=== PATIENT | female | born 1985 | race African-American/Black ===

== ENCOUNTER → 2018-03-16 | Emergency (ER) | payer BC ==
[~2018-03-16] VITALS: Ht 172.7 cm; Wt 73.0 kg
[2018-03-16 21:05] VITALS: BP 141/89
== END ==
LOC: ER 20:58
DX: T74.21XA Adult sexual abuse, confirmed, initial encounter (principal); R10.30 Lower abdominal pain, unspecified; R10.2 Pelvic and perineal pain; R03.0 Elevated blood-pressure reading, without diagnosis of hypertension; Z88.2 Allergy status to sulfonamides
CPT/HCPCS: 99281